=== PATIENT | female | born 1970 | race Caucasian/White ===

== ENCOUNTER 2017-10-19 12:55 | Emergency (ER) | payer BC ==
[~2017-10-19] VITALS: Ht 172.7 cm; Wt 99.8 kg
[2017-10-19 13:06] VITALS: BP 137/89
--- NOTE | 2017-10-19 13:29 | RAD ---
Two-view left forearm History: Pain status post fall AP lateral view The visualized osseous structures appear normal. Impression Negative examination.
[2017-10-19] MEDS ORDERED: TETANUS AND DIPHTHERIA TOX/PF 0.5 ML VIAL. VAX IM ONE (13:30)
--- NOTE | 2017-10-19 13:33 | PHYS DOC ---
Past History Past Medical History: Hypertension Past Surgical History: , Hysterectomy Smoking: Non-smoker Alcohol Use: Rarely Drug Use: None Adult General Chief Complaint Chief Complaint: MECHANICAL FALL HPI HPI 47-year-old male patient states she was tripped and had a fall and injured her left forearm. Patient states the pain getting worse with movement of her elbow and wrist Patient denies loss of consciousness. Patient is not up-to-date with tetanus immunization. Review of Systems Review of Systems Constitutional: Denies fever or chills [] Eyes: Denies change in visual acuity, redness, or eye pain [] HENT: Denies nasal congestion or sore throat [] Respiratory: Denies cough or shortness of breath [] Cardiovascular: No additional information not addressed in HPI [] GI: Denies abdominal pain, nausea, vomiting, bloody stools or diarrhea [] : Denies dysuria or hematuria [], report joint pain [] Integument: Denies rash or skin lesions [] Neurologic: Denies headache, focal weakness or sensory changes [] Endocrine: Denies polyuria or polydipsia [] All other systems were reviewed and found to be within normal limits, except as documented in this note. Current Medications Current Medications Current Medications Medications (Trade) Dose Ordered Sig/Michelle Start Time Stop Time Status Last Admin Dose Admin Tetanus/ Diphtheria Toxoids Adsorbed (Tenivac Vial) 0.5 ml ONCE ONCE 10/19/17 13:30 10/19/17 13:31 Allergies Allergies Allergies Coded Allergies Type Severity Reaction Last Updated Verified Sulfa (Sulfonamide Antibiotics) Allergy Unknown 10/19/17 Yes Physical Exam Physical Exam Constitutional: Well developed, well nourished, mild distress, non-toxic appearance. [] HENT: Normocephalic, atraumatic, bilateral external ears normal, oropharynx moist, no oral exudates, nose normal. [] Eyes: PERRLA, EOMI, conjunctiva normal, no discharge. [] Neck: Normal range of motion, no tenderness, supple, no stridor. [] Cardiovascular:Heart rate regular rhythm, no murmur [] Lungs & Thorax: Bilateral breath sounds clear to auscultation [] Skin: Warm, dry, no erythema, no rash, right palm abrasion [] Back: No tenderness, no CVA tenderness. [] Extremities: No deformity in left upper extremity, no tenderness in wrist or elbow, full range of motion of left forearm Neurologic: Alert and oriented X 3, normal motor function, normal sensory function, no focal deficits noted. [] Psychologic: Affect normal, judgement normal, mood normal. [] Current Patient Data Vital Signs Vital Signs Date Time Temp Pulse Resp B/P (MAP) Pulse Ox O2 Delivery O2 Flow Rate FiO2 10/19/17 13:06 97.9 67 16 100 Room Air EKG EKG [] Radiology/Procedures Radiology/Procedures [] Course & Med Decision Making Course & Med Decision Making Pertinent Imaging studies reviewed. (See chart for details) Evaluation of patient in ER showed 47-year-old male patient with a fall and injury to left forearm. Patient did not have deformity and x-ray did not show fracture. Velcro wrist splint was applied by [employer] and patient instructed to apply ice on her forearm. [] Dragon Disclaimer Dragon Disclaimer This electronic medical record was generated, in whole or in part, using a voice recognition dictation system. Departure Departure: Impression: Primary Impression: Sprain of left forearm Additional Impression: Abrasion hand Disposition: 01 HOME, SELF-CARE (At 1400) Condition: IMPROVED Referrals: PCP,UNKNOWN (PCP) Patient Instructions: Muscle Strain Additional Instructions: Apply ice on the affected area Follow-up with your primary care physician in 3-5 days Return to ER if not getting better Scripts Ibuprofen (IBUPROFEN) 800 Mg Tablet 1 TAB PO TID, #30 TAB Prov: MAO TUBBS MD 10/19/17 Problem Qualifiers MAO TUBBS MD Oct 19, 2017 13:33
[2017-10-19] MEDS ORDERED: IBUP800T19 PO (13:50)
== END 2017-10-19 14:05 | disposition home or self-care (01) ==
LOC: ER 12:55
DX: S59.812A Other specified injuries left forearm, initial encounter (principal); I10 Essential (primary) hypertension; Z88.2 Allergy status to sulfonamides; W01.0XXA Fall on same level from slipping, tripping and stumbling without subsequent striking against object, initial encounter; Y93.89 Activity, other specified; Y99.8 Other external cause status; Y92.89 Other specified places as the place of occurrence of the external cause
CPT/HCPCS: 29125; 73090; 90471; 90714; 99284-25

== ENCOUNTER 2020-03-01 20:59 | Inpatient (IN) | payer BC ==
[~2020-03-01] VITALS: Ht 172.7 cm; Wt 97.6 kg
[~2020-03-01 20:59] MED LIST: IBUP800T19 PO
[2020-03-01] MEDS ORDERED: IV NORMAL SALINE 1,000ML 1,000 ML IV SCH (21:30)
[2020-03-01] MEDS ORDERED: ONDANSETRON PF 4 MG/2 ML VIAL. IVP ONE (21:30)
--- NOTE | 2020-03-01 21:37 | PHYS DOC ---
Past History Past Medical History: Hypertension Past Surgical History: , Hysterectomy Smoking: Non-smoker Alcohol Use: Rarely Drug Use: None General Adult EDM: Chief Complaint: FLANK PAIN HPI: HPI: Patient is a 49-year-old female who presents with complaint of right-sided abdominal pain that started this morning at about 9 or 10 in the morning. She states that initially the pain was not very bad but throughout the day it is gotten worse. She states that at its worst is been about an 8 out of 10 and states that it is worsened with palpation and movement. She describes it is more of a sharp pain. She denies any change in pain with deep breathing. Patient does indicate that she thinks that she was running a low-grade fever earlier and she has also been nauseated. She does admit to some decreased domingo etite this evening. [] Review of Systems: Review of Systems: Constitutional: Positive low-grade fever Respiratory: Denies cough or shortness of breath Cardiovascular: Denies chest pain or edema GI: Complains of right lower abdominal pain with nausea. Denies vomiting or diarrhea : Denies dysuria Neurologic: Denies headache, focal weakness or sensory changes A full 10 point review of systems has been reviewed and is otherwise negative. Heart Score: Risk Factors: Risk Factors: DM, Current or recent (<one month) smoker, HTN, HLP, family history of CAD, obesity. Risk Scores: Score 0 - 3: 2.5% MACE over next 6 weeks - Discharge Home Score 4 - 6: 20.3% MACE over next 6 weeks - Admit for Clinical Observation Score 7 - 10: 72.7% MACE over next 6 weeks - Early Invasive Strategies Allergies: Allergies: Allergies Coded Allergies Type Severity Reaction Last Updated Verified Sulfa (Sulfonamide Antibiotics) Allergy Unknown 10/19/17 Yes Physical Exam: PE: Constitutional: Well developed, well nourished, no acute distress, non-toxic appearance. [] HENT: Normocephalic, atraumatic, bilateral external ears normal, oropharynx moist, no oral exudates, nose normal. [] Eyes: PERRLA, EOMI, conjunctiva normal, no discharge. [] Neck: Normal range of motion, no tenderness, supple, no stridor. [] Cardiovascular: Regular rate and rhythm [] Lungs & Thorax: Bilateral breath sounds clear to auscultation [] Abdomen: Bowel sounds normal, soft, with moderate right lower quadrant tenderness. [] Skin: Warm, dry, no erythema, no rash. [] Extremities: No tenderness, no cyanosis, no clubbing, ROM intact, no edema. [] Neurologic: Alert and oriented X 3, no focal deficits noted. [] EKG: EKG: [] Radiology/Procedures: Radiology/Procedures: [] Course & Med Decision Making: Course & Med Decision Making Pertinent Labs and Imaging studies reviewed. (See chart for details) [] Dragon Disclaimer: Dragon Disclaimer: This electronic medical record was generated, in whole or in part, using a voice recognition dictation system. Departure Departure: Impression: Primary Impression: Diverticulitis large intestine Qualified Codes: K57.32 - Diverticulitis of large intestine without perforation or abscess without bleeding Disposition: ADMITTED INPATIENT Admitting Physician: Harsha Brand Condition: IMPROVED Referrals: DAWN VAZQUEZ MD (PCP) CASEY STRICKLAND Jr. DO March 01, 2020 21:37
[2020-03-01] MEDS ORDERED: IOHEXOL 300 MG/ML 75 ML VIAL. IV ONE (21:45)
[2020-03-01 21:47] LABS: BILIRUBIN,URINE NEG (NEG); CLARITY,URINE CLEAR; COLOR,URINE YELLOW; GLUCOSE,URINE NEG (NEG)
[2020-03-01 21:48] LABS: BACTERIA,URINE 0 /HPF (0-FEW); NITRITE,URINE NEG (NEG); SQUAMOUS EPITHELIAL CELL,UR OCC /LPF; UROBILINOGEN,URINE 0.2 mg/dL (0.2 mg/dL); WBC,URINE OCC /HPF (0-4)
[2020-03-01] MEDS ORDERED: CONTRAST GIVEN MC PRN (22:00)
[2020-03-01 22:03] LABS: BASO # 0.1 x10^3/uL (0.0-0.2); BASO % 1 % (0-3); EOS # 0.2 x10^3/uL (0.0-0.7); EOS % 1 % (0-3); HEMATOCRIT 41.7 % (36.0-47.0); HEMOGLOBIN 14.1 g/dL (12.0-15.5); LYMPH # 1.6 x10^3/uL (1.0-4.8); LYMPH % 12 % (24-48); MEAN CORPUSCULAR HEMOGLOBIN 31 pg (25-35); MEAN CORPUSCULAR HGB CONC 34 g/dL (31-37); MEAN CORPUSCULAR VOLUME 93 fL (79-100); MONO % 8 % (0-9); NEUT # 10.3 x10^3uL (1.8-7.7); NEUT % 78 % (31-73); PLATELET COUNT 275 x10^3/uL (140-400); RED BLOOD COUNT 4.49 x10^6/uL (3.50-5.40); RED CELL DISTRIBUTION WIDTH 13.3 % (11.5-14.5); WHITE BLOOD COUNT 13.2 x10^3/uL (4.0-11.0)
[2020-03-01 22:11] LABS: CALCIUM 9.9 mg/dL (8.5-10.1); GFR 58.7; POTASSIUM 3.6 mmol/L (3.5-5.1)
[2020-03-01 22:16] LABS: ALBUMIN/GLOBULIN RATIO 1.1 (1.0-1.7); TOTAL BILIRUBIN 0.8 mg/dL (0.2-1.0); TOTAL PROTEIN 7.8 g/dL (6.4-8.2)
--- NOTE | 2020-03-01 22:38 | RAD ---
Exam: CT of abdomen and pelvis with contrast INDICATION: Right lower quadrant abdominal pain TECHNIQUE: Sequential axial images through the abdomen and pelvis obtained following the administration of 75 mL of Omni 300 IV contrast. Sagittal and coronal reformatted images were reconstructed from the axial data and reviewed. Comparisons: None FINDINGS: Heart size is normal. No pericardial effusion. Visualized lung bases are clear. No pleural effusion. Liver, spleen, pancreas, gallbladder and adrenals are unremarkable. Kidneys demonstrate symmetric enhancement. No perinephric inflammation or hydronephrosis. No renal or ureteral calculi. Bladder is decompressed not well evaluated. Uterus is absent. No abnormal adnexal mass. There is a inflamed diverticula noted at the ascending colon with adjacent fat stranding. No adjacent focal fluid collection. No free intra-abdominal air. Remainder of the large and small bowel are unremarkable. No obstruction. Abdominal aorta has a normal course and caliber. Abdominal vasculature is patent. No enlarged abdominal lymph nodes are identified. No suspicious osseous lesions or acute fractures. IMPRESSION: Findings of diverticulitis at the ascending colon. No evidence for perforation or adjacent abscess. Exposure: One or more of the following in the visualized dose reduction techniques were utilized for this examination: 1. Automated exposure control 2. Adjustment of the MA and/or KV according to patient size 3. Use of iterative of reconstructive technique Electronically signed by: Annalisa Casey MD (03/01/2020 10:35 PM) [id number]
[2020-03-01] MEDS ORDERED: CIPROFLOXACIN 400MG PREMIX 200 ML IV ONE (23:00)
[2020-03-02] MEDS ORDERED: MORPHINE SULFATE 2 MG/ML DISP.SYRIN. IVP PRN
[2020-03-02] MEDS ORDERED: IV NORMAL SALINE 1,000ML 1,000 ML IV SCH
[2020-03-02] MEDS ORDERED: ONDANSETRON PF 4 MG/2 ML VIAL. IVP PRN
[2020-03-02] MEDS ORDERED: VALS320T2 PO (00:53)
[2020-03-02 00:54] VITALS: BP 130/81
[2020-03-02 06:22] VITALS: BP 108/74
[2020-03-02 06:47] LABS: CALCIUM 8.7 mg/dL (8.5-10.1); CREATININE 0.9 mg/dL (0.6-1.0); GFR 66.3; POTASSIUM 3.5 mmol/L (3.5-5.1)
[2020-03-02 06:49] LABS: BASO % 1 % (0-3); EOS # 0.1 x10^3/uL (0.0-0.7); EOS % 2 % (0-3); HEMATOCRIT 36.9 % (36.0-47.0); HEMOGLOBIN 12.7 g/dL (12.0-15.5); LYMPH # 1.7 x10^3/uL (1.0-4.8); LYMPH % 18 % (24-48); MEAN CORPUSCULAR HEMOGLOBIN 32 pg (25-35); MEAN CORPUSCULAR HGB CONC 34 g/dL (31-37); MEAN CORPUSCULAR VOLUME 93 fL (79-100); MONO # 0.8 x10^3/uL (0.0-1.1); MONO % 9 % (0-9); NEUT # 6.7 x10^3uL (1.8-7.7); NEUT % 71 % (31-73); PLATELET COUNT 253 x10^3/uL (140-400); RED BLOOD COUNT 3.96 x10^6/uL (3.50-5.40); RED CELL DISTRIBUTION WIDTH 13.3 % (11.5-14.5); WHITE BLOOD COUNT 9.3 x10^3/uL (4.0-11.0)
[2020-03-02 10:39] VITALS: BP 126/87
[2020-03-02] MEDS: CIPROFLOXACIN 400MG PREMIX 200 ML IV SCH ×2 (11:39→20:17)
[2020-03-02] MEDS: IV NORMAL SALINE 1,000ML 1,000 ML IV SCH (11:40)
--- NOTE | 2020-03-02 12:58 | HP ---
ADMIT DATE: HISTORY OF PRESENT ILLNESS: The patient is a 49-year-old female patient who presented to the Emergency Room with complaint of right sided abdominal pain that started on the morning of admission at around 9-10 in the morning. She stated that the pain was initially not very bad, but throughout the day, then got worse in severity and she rated her pain about 8/10, stated it is worsened with palpation and movement, described as sharp in nature. Denied any nausea or vomiting. Denied any diarrhea. She did state that she was running a low-grade fever. She did state that she was nauseated and has some anorexia. She has no diarrhea. She has never had any symptoms like this before. None of her family members had similar symptoms. She was evaluated in the Emergency Room and her lab work showed that she has leukocytosis. Urinalysis was unremarkable. She had had a CT scan of the abdomen, which showed that there is inflamed diverticulum noted at the ascending colon with adjacent fat stranding, no adjacent focal fluid collection, no free intraabdominal air. Remainder of the large and small bowel are unremarkable. No obstruction. The patient was admitted with acute diverticulitis and was started treatment with IV ciprofloxacin and Flagyl. PAST MEDICAL HISTORY: Significant for hypertension and seasonal allergy. PAST SURGICAL HISTORY: Significant for , partial hysterectomy, and left breast lumpectomy. ALLERGIES: She is allergic to SULFA DRUGS. MEDICATIONS: She is currently on following medications: She is on valsartan, Diovan 320 mg once a day. FAMILY HISTORY: She has half-brother who apparently has problems with clotting disorder. Her father is alive at the age of 71, also has clotting disorder. Her mother is alive at age 71 and known to have emphysema. SOCIAL HISTORY: She is , has one son. She never smoked, does drink alcohol occasionally. Does not use any drugs. 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 REVIEW OF SYSTEMS: The patient denied any other complaint. PHYSICAL EXAMINATION: GENERAL: On arrival to the Emergency Room, she looked well and was clearly in no apparent respiratory distress. No pallor, jaundice, cyanosis, or thyromegaly. No jugular venous distension. No limb edema. VITAL SIGNS: Her heart rate was 106, blood pressure was 153/98, temperature was 100.1, respiratory rate was 20, and oxygen saturation was 98% on room air. HEAD, EYES, EARS, NOSE AND THROAT: Showed normocephalic, atraumatic. NECK: Supple. HEART: Showed normal first and second heart sounds with no gallop, rub or murmur. CHEST: Shows central trachea, equal bilateral expansion, air entry, vesicular breath sounds. No crepitation or rhonchi. ABDOMEN: Distended, mostly soft with tenderness mostly in the right flank area. There is no guarding or rigidity. No organomegaly. All hernial orifice intact. Bowel sounds normal. NEUROLOGIC: She was awake, alert, responding appropriately. All cranial nerves intact. EXTREMITIES: She moves extremities without difficulty. She ambulates without assistance or assistive devices. LABORATORY DATA: Her lab work on arrival showed a white cell count was high at 13,200, hemoglobin 14, hematocrit 42, MCV 93, and platelet count of 275,000. Her chemistry showed a serum sodium of 137, potassium 3.6, chloride 98, bicarbonate 26, anion gap of 13, BUN 15, creatinine 1, estimated GFR was 58 mL per minute. Her glucose was 102, calcium was 9.9. Total bilirubin, AST, ALT, alkaline phosphatase were normal. Total protein was 7.8, albumin 4, serum lipase was 129. Her urinalysis is essentially unremarkable. Her CT scan of the abdomen and pelvis showed that the heart size is normal, no pericardial effusion. Visualized lung bases are clear, no pleural effusion. Liver, spleen, pancreas, gallbladder and adrenals are unremarkable. Kidneys demonstrate symmetric enhancement. No perinephric inflammation or hydronephrosis. No renal or ureteral calculi. Bladder is decompressed, not well evaluated. Uterus absent. No abnormal adnexal masses. There is an inflamed diverticula noted at the ascending colon with adjacent fat stranding, no adjacent focal fluid collection, no free intraabdominal air, remainder of the large and small bowel are unremarkable. No obstruction. Abdominal aorta has a normal course and caliber. Abdominal vasculature is patent. No enlarged abdominal lymph nodes are identified. No suspicious osseous lesion or acute fractures. ASSESSMENT AND PLAN: In summary, this is a 49-year-old female patient who was admitted with new-onset abdominal pain, leukocytosis and diverticulitis involving the ascending colon. We will keep her n.p.o., was given IV ciprofloxacin, Flagyl, morphine and Zofran. We will monitor her closely and obviously once the pain subsided, we can start her on a clear liquid diet. GIANA GALLOWAY MD DR: REENA/nathalie JOB#: [id number] / [id number]
--- NOTE | 2020-03-02 13:10 | PN ---
DATE: 03/02/2020 SUBJECTIVE: The patient is resting, slightly propped up in bed, no apparent distress. She continued to complain of pain in her right flank area. Denied any nausea or vomiting. She had a bowel movement yesterday. PHYSICAL EXAMINATION: GENERAL: When I examined her this morning, she looked well and was clearly in no apparent respiratory distress. No pallor, jaundice, cyanosis or thyromegaly. No jugular venous distention. No lower limb edema. VITAL SIGNS: Her heart rate was 77, blood pressure was 126/87, temperature was 98.5, respiratory rate was 20, and oxygen saturation was 96% on room air. HEAD, EYES, EARS, NOSE AND THROAT: Showed normocephalic, atraumatic. NECK: Supple. HEART: Showed normal first and second heart sounds. No gallop or murmur. CHEST: Clear to auscultation. No crepitation or rhonchi. ABDOMEN: Distended, soft with tenderness mostly in the right flank area. No guarding or rigidity. No organomegaly. All hernial orifice intact. Bowel sounds normal. NEUROLOGIC: She was awake, alert, responding appropriately. All cranial nerves intact. She moves extremities without difficulty. She ambulates without assistance or assistive devices. LABORATORY DATA: Her lab work this morning showed a white cell count down to 9300, hemoglobin 12.7, hematocrit 36.9, MCV 93, and platelet count of 253,000. Her chemistry showed a serum sodium 140, potassium 3.5, chloride 103, bicarbonate 27, anion gap of 10, BUN 12, creatinine 0.9, estimated GFR was 66 mL per minute, his glucose was 100, calcium was 8.7. Urinalysis unremarkable. IMPRESSION AND PLAN: In summary, this is a 49-year-old female patient who was admitted with abdominal pain, mostly in the right flank area. CT scan showed that she has diverticulitis at the descending colon. No evidence for perforation or adjacent abscess. PLAN: To continue with IV antibiotics ciprofloxacin and Flagyl. Continue with morphine and ondansetron. Continue with IV fluid. The patient can be started on clear liquids as tolerated. GIANA GALLOWAY MD DR: REENA/nathalie JOB#: [id number] / [id number]
[2020-03-02 15:44] VITALS: BP 118/76
[2020-03-02 19:20] VITALS: BP 120/75
[2020-03-02 22:40] VITALS: BP 104/66
[2020-03-03] MEDS: IV NORMAL SALINE 1,000ML 1,000 ML IV SCH (05:08)
[2020-03-03 05:23] VITALS: BP 125/83
[2020-03-03] MEDS: CIPROFLOXACIN 400MG PREMIX 200 ML IV SCH (07:50)
[2020-03-03 10:28] VITALS: BP 132/88
[2020-03-03] MEDS ORDERED: CIPR500S3 PO (13:01)
[2020-03-03] MEDS ORDERED: METR-34 PO (13:01)
--- NOTE | 2020-03-03 13:32 | DS ---
DATE OF DISCHARGE: 03/03/2020 HOSPITAL COURSE: The patient is a 49-year-old female patient who presented to the Emergency Room with abdominal pain, mostly in the right flank area. She was evaluated in the Emergency Room, she was found to have leukocytosis. Urinalysis was unremarkable. CT scan of the abdomen showed inflamed diverticulum noted at the ascending colon with adjacent fat stranding, no adjacent focal fluid collection, no free intraabdominal air and was admitted and treated with IV antibiotic in the form of ciprofloxacin as well as Flagyl. She was initially put on IV fluids and kept n.p.o.; however, we did start her on clear liquid diet that she tolerated and advanced. She has had tolerated regular diet this morning and afternoon, has had no more pain, no nausea, no vomiting. Did have some loose bowel movement early this morning, has been up and about without difficulty and she remained hemodynamically stable and afebrile with white cell count has normalized. The patient was discharged home to continue treatment with oral antibiotic. PHYSICAL EXAMINATION: GENERAL: When I saw her this afternoon, she looked well and was clearly in no apparent respiratory distress. No pallor, jaundice, cyanosis or thyromegaly. No jugular venous distention. No lower limb edema. VITAL SIGNS: Her heart rate was 72, blood pressure was 132/88, temperature was 98.1, respiratory rate was 18 and oxygen saturation was 95%. HEAD, EYES, EARS, NOSE AND THROAT: Showed normocephalic, atraumatic. NECK: Supple. HEART: Showed normal first and second heart sounds. No gallop, rub or murmur. CHEST: Clear to auscultation. No crepitation or rhonchi. ABDOMEN: Distended, soft, no tenderness. No guarding or rigidity. No organomegaly. All hernial orifice intact. Bowel sounds normal. NEUROLOGIC: She is grossly intact. Her intake over the last 24 hours and output were incompletely recorded. LABORATORY DATA: This morning showed her white cell count was 9300, hemoglobin 13, hematocrit 37, MCV 93, and platelet count 253,000. Her chemistry showed a serum sodium 140, potassium 3.5, chloride 103, bicarbonate 27, anion gap of 10, BUN 11, creatinine 0.9, estimated GFR was 66 mL per minute. Her glucose was 100, calcium was 8.7. DISCHARGE MEDICATIONS: The patient was discharged home to continue on her valsartan for Diovan 320 mg once a day, ciprofloxacin 500 mg twice a day for 8 days and Flagyl 500 mg 3 times a day for 8 days. FINAL DISCHARGE DIAGNOSES: 1. Acute diverticulitis. 2. Hypertension. 3. Seasonal allergy. The patient was advised to follow with her primary care physician as she probably needs a colonoscopy after she completed antibiotic therapy. GIANA GALLOWAY MD DR: REENA/nathalie JOB#: [id number] / [id number]
[2020-03-03] MEDS ORDERED: LACTOBACILLUS RHAMNOSUS GG 1 CAPSULE. PO SCH (21:00)
== END 2020-03-03 13:30 | disposition home or self-care (01) | DRG 392 ==
LOC: ER 20:59 → 1 SOUTH 23:36
PROVIDERS: ADMIT Hospitalist; ATTEND Internal Medicine
DX: K57.32 Diverticulitis of large intestine without perforation or abscess without bleeding (principal); J30.2 Other seasonal allergic rhinitis; Z82.5 Family history of asthma and other chronic lower respiratory diseases; I10 Essential (primary) hypertension; Z83.2 Family history of diseases of the blood and blood-forming organs and certain disorders involving the immune mechanism; Z90.711 Acquired absence of uterus with remaining cervical stump; Z79.899 Other long term (current) drug therapy
CPT/HCPCS: 36415; 74177; 80048; 80053; 81001; 83690; 85025; 87086; J0744; J2405; J3010; J3490; Q9967; J7030